=== PATIENT | female | born 1995 | race Caucasian/White ===

== ENCOUNTER 2016-10-12 11:51 | Emergency (ER) | payer OTHER ==
[~2016-10-12] VITALS: Ht 157.5 cm; Wt 54.7 kg
[2016-10-12 11:54] VITALS: TEMP 36.7; Ht 157.5 cm; Wt 54.7 kg
[2016-10-12] MEDS ORDERED: DROS3TAB12 PO (13:37)
--- NOTE | 2016-10-12 13:38 | DIAGNOSTIC IMAGING REPORT ---
SOFT TISSUE NECK TECHNIQUE: AP and lateral soft tissue neck FINDINGS: Normal prevertebral soft tissues. No distention of the hypopharynx. The epiglottis is normal. Mild prominence the adenoids IMPRESSION: Mild prominence the adenoids. Otherwise normal study Electronically signed by: Louis Ojeda M.D. 10/12/2016 1:36 PM Dictated Date/Time: 10/12/2016 1:36 PM
[2016-10-12 14:00] VITALS: BP 114/62; PULSE 75; O2SAT 98
--- NOTE | 2016-10-12 19:49 | EMERGENCY ROOM VISIT NOTE ---
ED Visit Note First contact with patient: 12:06 Chief Complaint: Sore throat, headaches. History of Present Illness: Ms. Gray is a 21-year-old female who ambulates into the ED complaining of sore throat, headaches, fevers and neck soreness. Patient reports her symptoms started 4 days ago with a sore throat. She reports initially was mild and gradually increased in intensity. On the second and third day of her symptoms she reports she started developing fevers and laid on the fourth day she developed a severe headache. Yesterday she continued to have a moderate headache with fever and a soreness in her neck muscles. Currently she describes her headache as a throbbing sensation. She rates her discomfort 3/10. Her pain is nonradiating. She has not identified any aggravating or alleviating factors related to her discomfort. She reports taken ibuprofen last evening with moderate relief of her discomfort. Associated with her discomfort she reports yesterday she had a fever of 38.6C orally. Additionally she reports she is having throat discomfort. She describes this as a soreness sensation. She rates her discomfort 3/10. Her pain is nonradiating. Her pain worsens with swallowing. Once again her pain decreased her discomfort. Associated with her pain she does report that she was drooling on day 2-3 of her discomfort at night but not during the day. Her symptoms have also been associated with a decreased appetite, joint and neck stiffness. She denies any recent trauma, dizziness, lightheadedness, sinus congestion, visual changes, hearing changes, difficulty speaking, difficulty swallowing, difficulty ambulating/coordinating by movements, inability to swallow, voice changes, ear drainage, nasal drainage, cough, wheezing, shortness of breath, abdominal pain, nausea, vomiting, skin eruptions, skin color changes. Review of Systems: As noted above in history of present illness. All body systems were reviewed and found to be negative as noted above. Past Medical History: Unspecified skin disorder, unspecified stomach disorder, status post ovarian cyst removal. Current Medications: control. Allergies to Medications: Patient denies. Social History: Patient is currently employed; she feels safe in her home environment; she denies tobacco use; she admits to alcohol use. Physical Examination: Vital Signs: Date Time Temp Pulse Resp B/P Pulse Ox O2 Delivery O2 Flow Rate FiO2 10/12/16 14:00 75 18 114/62 98 10/12/16 13:36 75 18 114/62 98 Room Air 10/12/16 11:54 36.7 67 17 135/78 100 Room Air GENERAL: 21-year-old female in mild distress due to pain, nontoxic-appearing, afebrile and hemodynamically stable. NEUROLOGICAL: Awake, alert and oriented to person, place and time. Answering questions appropriately and following commands. Normal gait. Good hand eye coordination. No focal motor or sensory deficits. SKIN: Warm, dry and pink. No soft tissue eruptions noted. HEENT: Atraumatic and normocephalic. No sinus tenderness or erythema over the frontal or maxillary sinuses. External ears are nontender. Auditory canals are pink and patent. Tympanic membranes are not erythematous or edematous. PERRLA. EOMI without nystagmus. Sclera white and conjunctiva pink. No drainage from naris. Oral cavity moist and pink. Airway is patent. Pharynx is mildly erythematous and edematous no tonsillar hypertrophy or exudates. Speech normal. No laryngeal tenderness. No lymphadenopathy. Trachea midline. No jugular venous distention. BACK: No tenderness over the bony cervical and thoracic spine. No tenderness, spasm or stiffness of the cervical musculature. No signs of meningismus. Full range of motion of the cervical spine. No CVA tenderness. THORAX: Lungs sounds are clear to auscultation and equal bilaterally with symmetrical chest wall. No wheezing, rales or rhonchi. ABDOMEN: Flat, soft and nontender. Positive bowel sounds in all quadrants. No guarding, rigidity or organomegaly. EXTREMITIES: Moves all extremities well on command and with purpose. All distal neurovascular statuses are intact and equal bilaterally. ED Course: Patient is assessed as noted above. Laboratory Testing: Group A Streptococcus Screen: Negative. Soft Tissue Neck X-Rays: Was reviewed by myself and read by the radiologist shows normal prevertebral soft tissues, no distention of the hypopharynx, normal -appearing epiglottis and mild prominence of the adenoids. Patient was offered pain medications and refused. Patient's case was reviewed with Dr. Hinson; we agreed on diagnostic approach, treatment, disposition and plan. Patient was educated about today's findings and instructed on her treatment plan ; she verbalizes understanding and agreement with this plan. Clinical Impression: Acute pharyngitis. Decision-Making: Initially my differential diagnosis I considered pharyngitis for multiple causes, meningitis, sinusitis and other causes. Disposition: Patient discharged home in stable condition; prior to departure she was reassessed and subjectively reported she was feeling much better and rated her overall discomfort 2/10. Plan: Patient was encouraged to alternate ibuprofen and acetaminophen every 3 hours as needed for pain or fevers. Patient was encouraged to stay well-hydrated with increased clear fluids. Patient was encouraged to follow-up at [facility] if no better in 3-4 days. Patient was encouraged return the ED for worsening pain, worsening headaches, worsening fevers, worsening neck discomfort, inability to swallow, painful talking, drooling or any new/concerning symptoms.
== END 2016-10-12 14:10 | disposition home or self-care (01) ==
LOC: C.EDB 11:54 → C.EDA 14:10
DX: J02.9 Acute pharyngitis, unspecified (principal); R51 Headache